=== PATIENT | female | born 1950 | race Hispanic/Latino ===

== ENCOUNTER → 2025-04-14 | Outpatient (CLI) | payer OTHER ==
[~2025-04-14] MED LIST: IOHEXOL-350 75 ML VIAL IV ONE
--- NOTE | 2025-04-14 13:34 | HMCIMG ---
EXAM: CTA Neck with Intravenous Contrast. CLINICAL HISTORY: Occlusion and stenosis of bilateral carotid arteries. TECHNIQUE: Axial CTA images of the neck performed with intravenous contrast. MIP reconstructed images were created and reviewed. Note: Per PQRS, the description of internal carotid artery percent stenosis, including 0 percent or normal exam, is based on [place] Symptomatic Carotid Endarterectomy Trial (NASCET) criteria. Dose reduction technique was used including one or more of the following: automated exposure control, adjustment of mA and kV according to patient size, and/or iterative reconstruction. CONTRAST: With; COMPARISON: None provided. FINDINGS: Common and internal carotid arteries: Moderate atherosclerotic calcification of the left carotid bulb and left internal carotid artery with narrowing of the left internal carotid artery approximately 50%. [id number] atherosclerotic calcification. Right carotid bulb narrowing greater than 70%. Follow up with a carotid ultrasound. External carotid arteries: Patent. Vertebral arteries: No significant stenosis. No dissection or occlusion. Soft tissues: No acute finding. No masses or lymphadenopathy. Bones: Mild degenerative changes of the thoracic spine. No acute osseous abnormality. IMPRESSION: 1. Moderate atherosclerotic calcification of the left carotid bulb and left internal carotid artery with approximately 50% narrowing. Follow up with a carotid ultrasound. 2. [id number] atherosclerotic calcification of the right carotid bulb with greater than 70% narrowing. Follow up with a carotid ultrasound. /[place]
== END | disposition home or self-care (01) ==
LOC: RAH 09:26
PROVIDERS: ATTEND Internal Medicine Cardiovascular Disease
DX: I65.23 Occlusion and stenosis of bilateral carotid arteries (principal); M47.814 Spondylosis without myelopathy or radiculopathy, thoracic region
CPT/HCPCS: 70498; Q9967